=== PATIENT | male | born 1990 | race Caucasian/White ===

== ENCOUNTER 2024-08-29 12:50 | Emergency (ER) | payer OTHER, SELFPAY ==
[2024-08-29 12:57] VITALS: BP 124/74; PULSE 114; TEMP 36.7; O2SAT 95
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
--- NOTE | 2024-08-29 13:27 | ECG_ITS ---
[facility] Test Date: 2024-08-29 Pat Name: Neto Martinez Department: Room: Gender: Male Practice Consultant: : 1990 Requested By: Daniele Abreu Order Number: [id number] Nivia MD: Raphael Griggs M.D. Measurements Intervals [place] Rate: 66 P: 51 ME: 100 QRS: 73 QRSD: 89 T: 66 QT: 338 QTc: 355 Interpretive Statements SINUS RHYTHM WITH SHORT ME INTERVAL No previous ECG available for comparison Electronically Signed On 09-03-2024 10:15:43 CDT by Raphael Griggs M.D. [email or web address]
[2024-08-29 13:45] VITALS: BP 160/100; PULSE 102; O2SAT 100
[2024-08-29] MEDS: tetanus-dipt-pertussis 0.5 mL SDV IM (13:49)
== END 2024-08-29 13:55 | disposition home or self-care (01) ==
PROVIDERS: Emergency Provider Emergency Medicine; PCP Family Medicine
DX: S20.219A Contusion of unspecified front wall of thorax, initial encounter (principal); Y04.2XXA Assault by strike against or bumped into by another person, initial encounter
CPT/HCPCS: 71046; 90715; 93005; 99284